=== PATIENT | male | born 1955 | race Caucasian/White ===

== ENCOUNTER → 2020-10-07 10:05 | Outpatient (CLI) | payer MEDICARE, SELFPAY ==
[2020-10-07] MEDS: COVID-19 VACC #1, MRNA(MOD) 100 MCG/0.5 ML VIAL IM (10:11)
== END ==
PROVIDERS: Visit Provider Internal Medicine
DX: Z23 Encounter for immunization (principal)
CPT/HCPCS: 0011A; 91301

== ENCOUNTER → 2020-11-05 10:07 | Outpatient (CLI) | payer MEDICARE, SELFPAY ==
[2020-11-05] MEDS: COVID-19 VACC #2, MRNA(MOD) 100 MCG/0.5 ML VIAL IM (10:09)
== END ==
PROVIDERS: Visit Provider Internal Medicine
DX: Z23 Encounter for immunization (principal)
CPT/HCPCS: 0012A; 91301

== ENCOUNTER → 2021-07-16 10:52 | Outpatient (CLI) | payer MEDICARE, SELFPAY ==
[2021-07-16] MEDS: COVID-19 VACC #3, MRNA(MOD) 50 MCG/0.25 ML VIAL IM (11:00)
== END ==
PROVIDERS: Visit Provider Internal Medicine
DX: Z23 Encounter for immunization (principal)
CPT/HCPCS: 0013A; 91301

== ENCOUNTER 2025-08-26 15:49 | Emergency (ER) | payer MEDICARE, OTHER, SELFPAY ==
[2025-08-26 16:37] VITALS: BP 229/112; PULSE 67; RESP 18; O2SAT 96; BMI 35.3
[2025-08-26 19:44] VITALS: BP 226/109; PULSE 62; RESP 20; O2SAT 97
--- NOTE | 2025-08-26 20:06 | ED.URI ---
HPI - URI/Sore Throat General Chief Complaint: Upper Respiratory Symptoms Stated Complaint: Medication Refill Time Seen by Provider: 08/26/25 16:26 Source: patient Mode of arrival: Ambulatory History of Present Illness HPI Narrative: 70-year-old gentleman presents with sinus congestion, cough, shortness of breath, wheezing for the past 3 weeks unrelieved with albuterol treatment. Patient denies any fever, chills, body aches, sore throat, nausea, vomiting, diarrhea. Other than what is stated 14 point review of system is negative Related Data Home Medications ?Medication ?Instructions ?Recorded ?Confirmed ASPIRIN (Aspirin) 324 mg PO ##0 07/11/08 Previous Rx's ?Medication ?Instructions ?Recorded albuterol sulfate 90 mcg/actuation 2 inh inhalation Q4-6H PRN 08/26/25 breath activated powder shortness of breath #1 ea inhaler,sensor amoxicillin 875 mg-potassium 1 tab PO BID #14 tabs 08/26/25 clavulanate 125 mg tablet prednisone 20 mg tablet 20 mg PO BID #10 tabs 08/26/25 Allergies Allergy/AdvReac Type Severity Reaction Status Date / Time No Known Drug Allergies Allergy Verified 08/26/25 16:36 Review of Systems Review of Systems ROS Unobtainable: All systems reviewed & are unremarkable except as noted in HPI and below Patient History Social History Smoking Status: Unknown if ever smoked Smoking Status: Unknown if ever smoked Exam Narrative Exam Narrative: GENERAL: [70] year old patient appears stated age. Well-developed patient, in mild distress. HEAD: Atraumatic. Normocephalic. EYES: Pupils equal round and reactive. Extraocular motions intact. No scleral icterus. No injection or drainage. ENT: Nose without bleeding, purulent drainage. Throat without erythema, tonsillar hypertrophy or exudate. Airway patent. R max sinus TTP NECK: Trachea midline. Non tender CARDIOVASCULAR: Regular rate and rhythm without murmurs, gallops, or rubs. RESPIRATORY: B/l wheeze with dec breath sounds b/l GASTROINTESTINAL: Abdomen soft, non-tender, nondistended. EXTREMITIES: No edema or joint tenderness. BACK: Nontender without deformity or crepitance. No flank tenderness. NEURO: AOx3. SKIN: No rash or erythema of visible areas Initial Vital Signs Initial Vital Signs: Vital Signs Pulse Rate 67 08/26/25 16:37 Respiratory Rate 18 08/26/25 16:37 Blood Pressure 229/112 H 08/26/25 16:37 Pulse Oximetry 96 08/26/25 16:37 Oxygen Delivery Method Room Air 08/26/25 16:37 Course Vital Signs Vital signs: Vital Signs - 8 hr 08/26/25 16:37 08/26/25 19:44 Pulse Rate 67 62 Respiratory Rate 18 20 Blood Pressure 229/112 H 226/109 H Pulse Oximetry 96 97 Oxygen Delivery Method Room Air Room Air MDM - URI/Sore Throat MDM Narrative Medical decision making narrative: All lab work vital signs nurse triage note medication list previous ER visits in all imaging studies reviewed. Patient given DuoNebs prednisone and Augmentin here. DC home on prednisone Augmentin and albuterol. Differential diagnosis COVID flu RSV bronchitis sinusitis. Discharge Plan Departure Patient Disposition: Home Clinical Impression: Acute bacterial sinusitis Instructions: DI for Sinusitis Activity Restrictions/Additional Instructions: Return with new or worsening symptoms. Keep hydrated. Take medicines directed. Follow up PCP in 1 week if no improvement in symptoms. Prescriptions: New amoxicillin-pot clavulanate 875-125 mg tablet 1 tab PO BID Qty: 14 0RF prednisone 20 mg tablet 20 mg PO BID Qty: 10 0RF albuterol sulfate 90 mcg/actuation aero powdr breath act w/sensor 2 inh inhalation Q4-6H PRN (Reason: shortness of breath) Qty: 1 0RF No Action ASPIRIN (Aspirin) 324 mg PO Qty: 0 Referrals: Terell Rogel MD [Primary Care Provider, Family Practice] Stand Alone Forms: Patient Portal/API
[2025-08-26] MEDS: AMOXICILLIN/CLAV 875/125 MG 1 TAB PO (20:16)
[2025-08-26] MEDS: ALBUTEROL/IPRATROPIUM 3 ML AMPUL INH (20:16)
[2025-08-26 20:47] VITALS: BP 187/78; PULSE 82; RESP 20; O2SAT 97
== END 2025-08-26 20:48 | disposition home or self-care (01) ==
PROVIDERS: Emergency Provider Family Medicine; PCP Family Medicine
DX: J01.80 Other acute sinusitis (principal); B96.89 Other specified bacterial agents as the cause of diseases classified elsewhere; R05.9 Cough, unspecified; Z76.0 Encounter for issue of repeat prescription; R06.02 Shortness of breath; R09.81 Nasal congestion; R06.2 Wheezing
CPT/HCPCS: 99283